=== PATIENT | male | born 1995 | race Caucasian/White ===

== ENCOUNTER 2017-05-21 09:38 | Inpatient (IN) | payer BC ==
[2017-05-21] MEDS ORDERED: Morphine 2 MG/ML SYRINGE ONE (10:00)
[2017-05-21] MEDS ORDERED: Ondansetron HCl/PF 4 MG/2 ML Vial ONE (10:01)
[2017-05-21 10:07] LABS: Hematocrit 41.5 % (42.0-52.0); Mean Platelet Volume 9.3 fL (7.4-10.4); Red Blood Cell (RBC) Count 5.33 mill/uL (4.00-5.20); White Blood Cell (WBC) Count 23.3 thou/uL (4.8-10.8)
[2017-05-21 10:31] LABS: ALT (SGPT) 13 U/L (8-55); AST (SGOT) 21 U/L (10-45); Alkaline Phosphatase 90 U/L (Less than 750); Anion Gap 13 mmol/L (10-20); BUN (Urea Nitrogen) 16 mg/dL (8.4-21.0); Bilirubin, Total 0.8 mg/dL (0.2-1.2); Calc. Creatinine Clearance 0 mL/min (70-130); Calcium 9.3 mg/dL (7.8-10.44); Carbon Dioxide 27 mmol/L (22-29); Chloride 103 mmol/L (98-107); Estimated GFR-MDRD Greater than 90; Protein, Total 7.2 g/dL (6.0-8.3)
[2017-05-21] MEDS ORDERED: Famotidine/PF 20 mg/2ml Vial ONE (10:35)
[2017-05-21] MEDS ORDERED: methylPREDNISolone Sod Succ/PF 125 MG/2 ML VIAL ONE (10:35)
[2017-05-21] MEDS ORDERED: diphenhydrAMINE 50 MG/ML VIAL ONE (10:35)
[2017-05-21] MEDS ORDERED: Water For Inject, Bacteriostat 30 ML ONE (10:35)
[2017-05-21 10:37] LABS: Band 6 % (5-11); Neutrophil 88 % (31-61); Reactive Lymphocytes 1 % (0-10)
--- NOTE | 2017-05-21 12:20 | CT ---
CT ABDOMEN AND PELVIS WITH IV CONTRAST: 05/21/2017 HISTORY: Patient with worsening right lower quadrant pain that began yesterday. Patient with Crohn disease a nd recent abscess drainage. COMPARISON: 04/16/2017 FINDINGS: The previous drainage catheter in the anterior right pelvis has been removed. There is inflammatory stranding in this region, with an associated area of increased density, which may be related to phl egmon. There is no fluid collection seen to suggest an abscess. There is free fluid seen adjacent to the right hepatic lobe and in the right pericolic gutter. There is persistent thickening involvi ng the terminal ileum. The degree of thickening headache improved from the prior study but is proba gonzalo related to the patient's history of Crohn disease. The appendix is normal in caliber. There is mild dependent bibasilar atelectasis with a very tiny amount of pleural fluid at each lung base. The liver, spleen, pancreas, bilateral adrenal glands, kidneys, and abdominal aorta have a normal CT appearance. There are dilated loops of proximal jejunum, measuring up to 3.1 cm. No obvious transition point is seen. A tiny amount of free fluid is seen in the left pericolic gutter. The urinary bladder has a normal CT appearance. IMPRESSION: 1. Interval removal of the right lower quadrant drainage catheter. There is no fluid collection se en on this exam to suggest an abscess. 2. Inflammatory stranding and what is thought to be phlegmon in the region of the previously seen d rainage catheter. 3. Thickening involving the distal ileum, as well as the terminal ileum, likely related to the ty ent's recently diagnosed Crohn's disease. 4. Small amount of free fluid in the abdomen and pelvis. 5. Mild nonspecific dilatation of the proximal small bowel. No obvious transition point is seen to suggest a mechanical small bowel obstruction. Findings could be related to ileus. There is narrow ing of the distal and terminal ileum due to the circumferential wall thickening, but there are inter vening normal caliber loops of small bowel between this area of thickening and the mildly dilated lo ops of jejunum. POS: CARI
[2017-05-21] MEDS ORDERED: Piperacillin/Tazobactam 3.375 GM VIAL ONE (12:32)
[2017-05-21] MEDS ORDERED: Ondansetron HCl/PF 4 MG/2 ML Vial IVP PRN ×2 (13:26→21:01)
[2017-05-21] MEDS ORDERED: Ondansetron ODT 4 MG TAB PO PRN (13:27)
[2017-05-21] MEDS ORDERED: Iopamidol 370 76% 100 ML VIAL ONE (13:29)
[2017-05-21] MEDS ORDERED: Dextrose 5 %-0.45 % NaCl 1,000 ML IV SCH (13:30)
[2017-05-21 13:31] VITALS: BMI 21.9
[2017-05-21] MEDS: Sodium Chloride 0.9% 1,000 ML IV SCH (14:53)
[2017-05-21] MEDS ORDERED: FLU VACC QS2017-18 36 mo. & older 0.5 ML SYRINGE IM ONE (15:15)
--- NOTE | 2017-05-21 17:03 | HP-2 ---
DATE OF ADMISSION: 05/21/2017. The patient seen at 12:48 p.m. CODE STATUS: FULL. PRIMARY CARE PHYSICIAN: Jackei dorsey. ATTENDING PHYSICIAN: Nishant Leal MD RESIDENT: Elena Don, PGY-3. HISTORIAN: Patient. CHIEF COMPLAINT: Right lower quadrant pain sent over from clinic. HISTORY OF PRESENT ILLNESS: Mr. Shepard is a pleasant 21-year-old white male with recently diagnosed Crohn's disease and intra-abdominal abscess in 03/2017, who presents with a 1-day history of right lower quadrant pain. He states that he awoke last night around 3:00 a.m. with sharp, severe abdominal pain. He states that he did not take any medication for the pain; however, he did make an appointment to follow up with his surgeon, Dr. Rojas, who had seen him for his intraabdominal abscess in March. The patient had CT guided drainage of the abdominal abscess in the right lower quadrant and had a draining tube placed which was removed in April. The patient states that he had a followup CT scan which showed that the infection had healed. He states that he had been doing well until yesterday when he developed pain. The patient also had a colonoscopy in 03/2017, when he was diagnosed with Crohn's disease in the hospital. He has been following with Dr. Jansen who has him on Remicade infusions every 2 months. In the emergency department, the patient received Zosyn 3.375 mg, Pepcid, Benadryl for premedication for contrast CT, Solu-Medrol, morphine, 1 liter of normal saline and Zofran. PAST MEDICAL HISTORY: 1. Crohn's disease diagnosed in 03/2017. 2. Anemia of chronic disease. 3. According to the patient's diagnosis of psoriasis 15 years ago; however, not on any therapy. PAST SURGICAL HISTORY: 1. Colonoscopy in 03/2017. 2. CT guided abdominal abscess drainage and draining tube placement. ALLERGIES: IODINE with contrast. MEDICATIONS: Remicade every 2 months. FAMILY HISTORY: Paternal grandmother with colon cancer. SOCIAL HISTORY: The patient denies tobacco, alcohol, or drugs. He is unmarried and has no children. He is a current mechanical engineering, sophomore at [employer]. He states that he lives with a friend who was recently ill with URI type symptoms. REVIEW OF SYSTEMS: A 10 point review of systems was conducted. Pertinent positives are mentioned in the HPI. All others are negative. PHYSICAL EXAMINATION: VITAL SIGNS: Blood pressure 129/68, pulse 79, respirations 16, T-max 98.4, pulse ox 98% on room air, current weight is 61.23 kilograms. GENERAL: The patient is alert and oriented x3. He is not in any acute distress. He is well developed, appropriately interactive during the interview and exam. EYES: Pupils equally round and reactive to light and accommodation. Extraocular muscles are intact. Conjunctivae within normal limits. ENT: Nasal mucosa and oropharynx slightly dry. NECK: Supple. No lymphadenopathy, no thyromegaly. CARDIOVASCULAR: Regular rate and rhythm, no murmurs, gallops, clicks or rubs. Radial pulses +2. RESPIRATIONS: Normal effort, no retractions. LUNGS: Clear to auscultation bilaterally. No wheezes, rales or rhonchi. SKIN: Acne lesions on face, otherwise warm and dry, free of cyanosis or lesions. ABDOMEN: Soft, bowel sounds present in all 4 quadrants. No masses or distension. Tender to palpation diffusely, but especially in the left lower quadrant and right lower quadrant. EXTREMITIES: No clubbing, cyanosis or edema. MUSCULOSKELETAL: Structure and tone within normal limits. Full range of motion. NEUROLOGIC: No focal deficits. PSYCHIATRIC: Appropriate. LABORATORY DATA: White count 23.3, hemoglobin 13, hematocrit 41.5, platelets 257, bands 60% and neutrophils 88%. Sodium 139, potassium 3.9, chloride 103, bicarbonate 27, BUN 16, creatinine 0.79, glucose 91, calcium 9.3, AST 21, ALT 13 , alkaline phosphatase 90, total bilirubin 0.2, total protein 7.2, and albumin 4.2. CT of the abdomen and pelvis shows phlegmon, thickening of the distal ileum, free fluid in the pericolic gutters. ASSESSMENT AND PLAN: This is a 21-year-old male with: 1. Intraabdominal infection status post drainage of abdominal abscess. We will admit the patient to the medical floor. Consultation has been placed in the emergency department to Dr. Rjoas and Dr. Jansen. We will make the patient n.p.o. and allow for bowel rest. The patient will receive morphine as needed for pain. He will be placed on Zosyn for his intraabdominal infection. He received steroids in the emergency department. We would appreciate recommendations if he needs to be continued on steroids. He received a high dose we have not continued any for today. We will recheck his laboratory work in the morning. He will receive maintenance fluids of normal saline at 110 per hour. 2. Crohn's disease due again for Remicade in 07/07. 3. Deep venous thrombosis prophylaxis. Sequential compression devices will be applied. DISPOSITION AND LENGTH OF STAY: 2 days. Symptomatic medications will be provided. History and physical exam as well as management was discussed with Dr. Leal. MICH
[2017-05-21] MEDS ORDERED: Piperacillin/Tazobactam 3.375 GM in Sodium Chloride 0.9% 100 ML IVPB SCH (18:00)
--- NOTE | 2017-05-21 19:55 | HP ---
DATE OF ADMISSION: 05/21/2017 CHIEF COMPLAINT: Abdominal pain. HISTORY OF PRESENT ILLNESS: This is a 21-year-old male with a recent diagnosis in March of Crohn's disease. At that time, he had a drain placed in his abdomen, because of an intra-abdominal abscess , which subsequently improved, and he was started on Remicade and steroids at that time. He was doi ng well after discharge from the hospital, but then last night developed abdominal pain that was in the lower quadrants, it was achy and crampy with associated chills, but no fevers. He denies diarrh ea, hematuria, hematochezia, melena, nausea, or vomiting. REVIEW OF SYSTEMS: A 12-point review of systems is negative except as described in the HPI. For sp ecific pertinent negatives, please see the resident's note. PAST MEDICAL HISTORY: Crohn's disease. PAST SURGICAL HISTORY: Drain placement. ALLERGIES: IODINATED CONTRAST. MEDICATION: Remicade. SOCIAL HISTORY: Denies tobacco, ethanol, or drug use. FAMILY HISTORY: Negative for any autoimmune disease. PHYSICAL EXAMINATION: VITAL SIGNS: Most recent include temperature 98.2, pulse 75, respirations 16, O2 sat 98%, BP 110/56 . CONSTITUTIONAL: He is tired-appearing and resting in bed. EYES: Without icterus or injection. ENT: Moist mucous membranes. No oral lesions. Pinna normal. Nares patent. NECK: Trachea midline and mobile. CARDIOVASCULAR: Regular rate and rhythm without murmur, gallops, or rubs. RESPIRATORY: Lungs clear to auscultation bilaterally without wheezes, rales, or rhonchi. ABDOMEN: Bowel sounds positive, but seemed to be slightly hypoactive. He is tender to palpation of bilateral lower quadrants. No CVA tenderness. No guarding or rigidity. : Deferred. MUSCULOSKELETAL: Without deformity or contracture. SKIN: Without obvious lesion or wound. NEUROLOGIC: Motor 5/5 in all 4 extremities. Sensation intact to light touch throughout. PSYCHIATRIC: Mood and affect are appropriate for current medical condition. Alert and oriented x3. LABORATORY DATA: BMP and LFTs are normal by current laboratory standards. CBC demonstrated leukocy tosis 23.3 with 88% neutrophils, hemoglobin of 13 with MCV of 77.9 and platelets 257. IMAGING: Includes the abdomen and pelvis CT with IV contrast that demonstrated, per report, interva l removal of the right lower quadrant drainage catheter. No fluid collection seen on the exam to as sess the abscess. 1. Inflammatory stranding of what is thought to be a phlegmon in the region of the previously seen drainage catheter. 2. Thickening involving distal ileum as well as the terminal ileum. 3. Small amount of free fluid in the abdomen and pelvis. 4. Nonspecific dilatation of the proximal small bowel. No obvious transition point is seen and aga in I have reviewed this film personally. ASSESSMENT AND PLAN: A 21-year-old male with, 1. Crohn's flare with no discrete intra-abdominal abscess. Dr. Rojas and Dr. Jansen both have be en consulted, recommended IV antibiotics with Zosyn. Did not, to my knowledge, recommend blood cult ures at this time. He received Solu-Medrol in the ED and we will await the recommendations concerni ng continuation in the morning and will ensure that he has had indeed a PPD or QuantiFERON gold to r ule out any latent tuberculosis. 2. Leukocytosis secondary to above. Trend and monitor. 3. Anemia, microcytic. If iron studies have not recently been sent, we will send, but suspect anem ia of chronic disease, indirectly related to Crohn's. 4. Deep vein thrombosis prophylaxis with SCDs. Recommend he ambulate t.i.d. 5. Gastrointestinal prophylaxis. He is n.p.o. for now. If he is n.p.o. for longer than 24 hours, we will add a PPI or H2 yani.
[2017-05-22] MEDS: Piperacillin/Tazobactam 3.375 GM in Sodium Chloride 0.9% 100 ML IVPB SCH ×3 (00:06→13:10)
[2017-05-22] MEDS: Sodium Chloride 0.9% 1,000 ML IV SCH ×3 (00:11→17:57)
[2017-05-22 04:35] LABS: #Lymphocytes 1.1 thou/uL (1.20-3.40); #Monocytes 0.7 thou/uL (0.11-0.59); #Neutrophils 14.6 thou/uL (1.40-6.50); %Basophils 0.1 % (0.0-1.0); %Lymphocytes 6.5 % (28.0-48.0); %Monocytes 4.4 % (0.0-4.0); Hematocrit 35.2 % (42.0-52.0); Red Blood Cell (RBC) Count 4.51 mill/uL (4.00-5.20); White Blood Cell (WBC) Count 16.4 thou/uL (4.8-10.8)
[2017-05-22 04:56] LABS: Anion Gap 11 mmol/L (10-20); BUN (Urea Nitrogen) 15 mg/dL (8.4-21.0); Calc. Creatinine Clearance 122 mL/min (70-130); Calcium 8.8 mg/dL (7.8-10.44); Carbon Dioxide 25 mmol/L (22-29); Chloride 106 mmol/L (98-107); Estimated GFR-MDRD Greater than 90
--- NOTE | 2017-05-22 07:19 | PRG ---
DATE OF SERVICE: 05/21/2017 HISTORY OF PRESENT ILLNESS: Mr. Shepard is well known to me from previous admission for a right lower quadrant abscess treated with percutaneous drainage. 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 Jansen. He has been treated outpatient with Remicade and had steroids on previous admission, now presents with more severe right lower quadrant pain. PHYSICAL EXAMINATION: VITAL SIGNS: He is afebrile, blood pressure is 97/55, pulse 81, respirations 18. LABORATORY: White blood cell count is 23, hemoglobin 13, platelets are 257. CT scan shows right lo wer quadrant phlegmon, some free fluid, evidence of severe inflammatory change to the terminal ileum . ASSESSMENT: Crohn's exacerbation with history of right lower quadrant abscess. PLAN: Admit, IV Zosyn, n.p.o. for now. We will get Dr. Jansen to see again. I am unsure what the next step would be, would prefer not to operate in the setting of this Crohn's disease; however, may require ileostomy. We will follow for clinical improvement.
[2017-05-22 08:05] LABS: Iron 30 ug/dL (65-175)
--- NOTE | 2017-05-22 08:10 | PDOC.FM ---
- Subjective Subjective: No complaints this morning. States abdominal pain is improved. - Objective MAR Reviewed: Yes Vital Signs & Weight: Vital Signs (12 hours) Temp Pulse Resp BP Pulse Ox 05/22/17 05:06 97.5 F L 65 18 93/51 L 98 05/22/17 00:20 97.6 F 79 18 108/61 98 Result Diagrams: 05/22/17 04:24 05/22/17 04:24 <Joi Galvan - Last Filed: 05/22/17 12:36> - Objective Vital Signs & Weight: Vital Signs (12 hours) Temp Pulse Resp BP Pulse Ox 05/22/17 19:00 97.8 F 72 18 106/63 98 05/22/17 17:00 97.4 F L 70 16 107/67 99 05/22/17 13:07 98 F 72 18 101/63 100 I&O: 05/21/17 05/22/17 05/23/17 06:59 06:59 06:59 Intake Total 1330 Balance 1330 Result Diagrams: 05/22/17 04:24 05/22/17 04:24 <Pato Rocha - Last Filed: 05/22/17 20:08> Phys Exam - Physical Examination Constitutional: NAD HEENT: PERRLA, moist MMs Respiratory: no wheezing, no rales, clear to auscultation bilateral Cardiovascular: RRR, no significant murmur Gastrointestinal: soft, no distention, positive bowel sounds mildly tender to palp in RLW Musculoskeletal: no edema, pulses present Neurological: non-focal Psychiatric: normal affect, A&O x 3 Skin: no rash <Joi Galvan - Last Filed: 05/22/17 12:36> Dx/Plan (1) Intra-abdominal infection Code(s): B99.9 - UNSPECIFIED INFECTIOUS DISEASE Status: Acute (2) Crohn's disease Code(s): K50.90 - CROHN'S DISEASE, UNSPECIFIED, WITHOUT COMPLICATIONS Status: Acute Qualifiers: Gastrointestinal tract location: small intestine Digestive disease complication type: with abscess Qualified Code(s): K50.014 - Crohn's disease of small intestine with abscess (3) Chronic anemia Code(s): D64.9 - ANEMIA, UNSPECIFIED Status: Chronic - Plan Plan: 21 yo m with pmhx of Crohns and recent admission for RLQ abscess, s/p percutaneous drainage in 03/2017, presents yesterday for recurrent RLQ pain, without clear abscess on CT, however signs of infection on CT, admitted for this RLQ infection to receive iv antibiotics and possible surgical management. 1.)RLQ infection: -Bob and Justyna consulted, pending recs -Will keep the pt NPO and await recommendations; will allow ice chips -will continue IV fluids and monitor pt's vitals (low bp this morning) -will continue zosyn at this time 2.)Crohns dz, acute flare-will restart home meds, provide morphine for pain, NPO for bowel rest and IV fluids <Joi Galvan - Last Filed: 05/22/17 12:36> Attending Addendum - Attending Addendum I personally evaluated the patient and discussed the management with Dr. Galvan I agree with the History, Examination, Assessment and Plan documented above with any addition or exceptions noted below. 21 year old with previous bowel perforation from Crohn's disease status post surgical drainage and antibiotics. He returns now with an apparent recurrence in the same location 5 weeks after stopping treatment. Surgery is following with us and wants to attempt treatment with antibiotics first. CT shows Phlegmon but no abscess. He is on Zosyn now and improving. He is immunosuppressed. The primary questions are whether we can resolve this with antibiotics and the duration of treatment. We will discuss these with Surgery. <Pato Rocha - Last Filed: 05/22/17 20:08>
--- NOTE | 2017-05-22 08:38 | PRG ---
DATE OF SERVICE: 05/22/2017 SUBJECTIVE: Mr. Shepard feels considerably better today. He denies nausea. His bloating is improved . PHYSICAL EXAMINATION: VITAL SIGNS: He is afebrile and his vital signs are stable. ABDOMEN: Soft, much less distended. He is tender in the right lower quadrant, but he is not guardi ng anymore. No peritoneal signs. LABORATORY DATA: White blood cell count is down to 16 from 23, creatinine 0.85. ASSESSMENT: Right lower quadrant phlegmon related to Crohn's on Zosyn. PLAN: We will allow ice chips and sips today. My hope is that he continues to improve clinically, still would prefer not to operate in the setting of active Crohn's even ileostomy can be fraught wit h enterocutaneous fistula, wound infection, hernia. We will follow with you.
[2017-05-22] MEDS: Piperacillin/Tazobactam 3.375 GM, Admixture Fee 1 EACH in Sodium Chloride 0.9% 100 ML IVPB SCH (18:02)
[2017-05-22] MEDS: Morphine 2 MG/ML SYRINGE SLOW IVP PRN (19:05)
[2017-05-22] MEDS ORDERED: Morphine 2 MG/ML SYRINGE SLOW IVP SCH (20:00)
--- NOTE | 2017-05-22 22:20 | CON ---
DATE OF CONSULTATION: 05/22/2017 HISTORY OF PRESENT ILLNESS: Mr. Shepard is a 21-year-old who was diagnosed with Crohn's disease when he initially presented with a perforation a few months ago. He responded well to IV antibiotics and then oral antibiotics and with improvement with that and steroids. He was started on Remicade in l ieu of surgery. His drains were removed and he has done very well from this initial hospitalization in late March until he was readmitted to the hospital yesterday. The patient notes he has had thi s three infusions of Remicade. He had been doing very well with no pain. His drain had been out fo r some time. His outpatient CAT scan between the last scan here on 03/26 and the scan from 04/02, a nd he had another one on 04/16, which showed the fluid was completely evacuated with some mild wall thickening adjacent to the terminal ileum, but there was marked improvement in the scan from his ini tia presentation. At that time, Dr. Rojas removed his drain. He is following clinically. He wa s doing fine until he states from Friday evening, the . He woke at about 3:00 in the morning o n Friday with lower abdominal pain and feeling of constipation with his pain was ongoing, some lo w-grade temperature. He also saw Dr. Rojas at 9:30 in the morning and had a CAT scan showing infla mmatory stranding in the right lower quadrant, area of increased density with likely phlegmon or abhishek e fluid just right hepatic lobe, right pericolic gutter, persistent terminal ileal thickening, some proximal dilatation of small bowel to that. He was admitted to the hospital. He was started on ant ibiotics including Zosyn and IV fluids. He was feeling much better. He has been afebrile since he has been here. Laboratory studies were notable for white count 23,000 yesterday, hemoglobin 12, tono telet count of 257. Today, his white count is down to 16, hemoglobin is 11.2, and platelet count 25 2. PAST MEDICAL HISTORY: Crohn's disease diagnosed in March of this year, prior to that he had some c hronic bowel problems which were felt to be IBS. PAST SURGICAL HISTORY: Negative except for the drains noted above. ALLERGIES: None known. MEDICATIONS AT HOME: On Remicade, he is on induction therapy. His next dose is in July. FAMILY HISTORY: Negative for inflammatory bowel disease. PHYSICAL EXAMINATION: VITAL SIGNS: Temperature was 98, pulse 72, blood pressure 101/63. LUNGS: Clear. HEART: Regular rate and rhythm without clicks or murmurs. ABDOMEN: Soft, no tenderness. There is no rebound. There is no guarding. ASSESSMENT: Crohn's disease. He presented with perforation and an abscess. We attempted to manage this medically. He has failed this. He is going to need a resection. The timing will be determin ed by General Surgery. If he is discharged home without resection, he will need to stay on antibiot ics until he has his resection, would not stop his Remicade during that time. This is actually shane ting his Crohn's disease and he does seem to be responding to it. It is just that he has disease th at has advanced to the point where he is going to need removal of this section of the bowel as it se ems he probably has a persistent fistula or a microperforation.
[2017-05-23] MEDS: Piperacillin/Tazobactam 3.375 GM, Admixture Fee 1 EACH in Sodium Chloride 0.9% 100 ML IVPB SCH ×5 (00:07→23:33)
[2017-05-23] MEDS: Morphine 2 MG/ML SYRINGE IVP PRN ×3 (00:37→16:14)
[2017-05-23] MEDS: Sodium Chloride 0.9% 1,000 ML IV SCH ×3 (04:38→21:33)
[2017-05-23 08:51] LABS: #Basophils 0.1 thou/uL (0.0-0.2); #Lymphocytes 1.2 thou/uL (1.20-3.40); #Monocytes 1.5 thou/uL (0.11-0.59); #Neutrophils 10.3 thou/uL (1.40-6.50); %Basophils 0.5 % (0.0-1.0); %Eosinophils 0.3 % (0.0-10.0); %Lymphocytes 9.4 % (28.0-48.0); %Monocytes 11.4 % (0.0-4.0); Hematocrit 35.5 % (42.0-52.0); Mean Platelet Volume 8.9 fL (7.4-10.4); Red Blood Cell (RBC) Count 4.57 mill/uL (4.00-5.20); White Blood Cell (WBC) Count 13.2 thou/uL (4.8-10.8)
[2017-05-23 09:13] LABS: Anion Gap 10 mmol/L (10-20); BUN (Urea Nitrogen) 14 mg/dL (8.4-21.0); Calc. Creatinine Clearance 115 mL/min (70-130); Calcium 8.6 mg/dL (7.8-10.44); Carbon Dioxide 28 mmol/L (22-29); Chloride 103 mmol/L (98-107); Estimated GFR-MDRD Greater than 90; Magnesium 1.7 mg/dL (1.7-2.2); Phosphorus 3.8 mg/dL (2.3-4.7)
--- NOTE | 2017-05-23 11:17 | PDOC.FM ---
- Subjective Subjective: Endorsed one episode of dysuria overnight. Complained of worsening abdominal pain this morning. - Objective Vital Signs & Weight: Vital Signs (12 hours) Temp Pulse Resp BP Pulse Ox 05/23/17 07:46 97.8 F 72 16 120/71 98 I&O: 05/22/17 05/23/17 05/24/17 06:59 06:59 06:59 Intake Total 2650 Output Total 2 Balance 2648 Result Diagrams: 05/23/17 08:35 05/23/17 08:35 <Joi Galvan - Last Filed: 05/23/17 11:17> - Objective Vital Signs & Weight: Vital Signs (12 hours) Temp Pulse Resp BP Pulse Ox 05/24/17 07:47 97.5 F L 53 L 16 05/24/17 07:15 97.5 F L 53 L 16 93/57 L 97 I&O: 05/23/17 05/24/17 05/25/17 06:59 06:59 06:59 Intake Total 2650 1920 Output Total 2 1000 Balance 2648 920 Result Diagrams: 05/24/17 06:31 05/24/17 06:31 <Pato Rocha - Last Filed: 05/24/17 08:02> Phys Exam - Physical Examination Constitutional: NAD HEENT: PERRLA, moist MMs Respiratory: no wheezing, clear to auscultation bilateral Cardiovascular: RRR, no significant murmur Gastrointestinal: soft tender in rlq Musculoskeletal: no edema, pulses present Neurological: non-focal, normal sensation Psychiatric: normal affect, A&O x 3 Skin: no rash <Joi Galvan - Last Filed: 05/23/17 11:17> Dx/Plan (1) Intra-abdominal infection Code(s): B99.9 - UNSPECIFIED INFECTIOUS DISEASE Status: Acute (2) Crohn's disease Code(s): K50.90 - CROHN'S DISEASE, UNSPECIFIED, WITHOUT COMPLICATIONS Status: Acute Qualifiers: Gastrointestinal tract location: small intestine Digestive disease complication type: with abscess Qualified Code(s): K50.014 - Crohn's disease of small intestine with abscess (3) Chronic anemia Code(s): D64.9 - ANEMIA, UNSPECIFIED Status: Chronic - Plan Plan: 21 yo m with pmhx of Crohns and recent admission for RLQ abscess, s/p percutaneous drainage in 03/2017, presents for recurrent RLQ pain, without clear abscess on CT but with evidence of some free fluid and signs of infection on CT , admitted for this RLQ infection to receive iv antibiotics and possible surgical management. 1.)RLQ infection: -Bob and Justyna consulted, pending recs -Will keep the pt NPO and await recommendations; will allow ice chips -will continue IV fluids and monitor pt's vitals (low bp this morning) -will continue zosyn at this time, will consider switching to ertapenem if pt needs to be discharged on IV antibiotics because this is dosed once daily. 2.)Crohns dz, acute flare-will restart home meds, provide morphine for pain, NPO for bowel rest and IV fluids 3.)Dysuria-ordered a UA, gonorrhea and chlamydia. <Joi Galvan - Last Filed: 05/23/17 11:17> Attending Addendum - Attending Addendum I personally evaluated the patient and discussed the management with Dr. Galvan I agree with the History, Examination, Assessment and Plan documented above with any addition or exceptions noted below. He is better. GI feels he needs a resection. Surgery would like to delay this given the activity of his disease. We will discuss timing with both consultants. <Pato Rocha - Last Filed: 05/24/17 08:02>
[2017-05-23 11:45] LABS: Bilirubin Negative (Negative); Blood, Urine Negative (Negative); Glucose, Urine (Dipstick) Negative (Negative); Ketone, Urine 15 mg/dL (Negative); Nitrite Negative (Negative); Protein, Urine (Dipstick) Negative (Neg-Trace); Urobilinogen 0.2 mg/dL (0.2-1.0)
[2017-05-23] MEDS: Morphine 2 MG/ML SYRINGE SLOW IVP PRN (12:00)
--- NOTE | 2017-05-23 14:51 | PRG ---
DATE OF SERVICE: 05/23/2017 SUBJECTIVE: Mr. Shepard is slightly improved today, although still having some right lower quadrant p ain. OBJECTIVE: VITAL SIGNS: He is afebrile. Vital signs are stable. ABDOMEN: Soft, dam tender assistant right lower quadrant. LABORATORY DATA: White cell count is down to 13. ASSESSMENT: Discussed with Dr. Jansen. PLAN: Plan is for liquid diet over the weekend. Continue Zosyn and try some steroids, may be force d to do operative procedure which would include an ileostomy next week.
[2017-05-23] MEDS: traMADol HCl 50 MG TAB PO PRN ×2 (17:02→21:38)
--- NOTE | 2017-05-23 19:16 | PRG ---
DATE OF SERVICE: 05/23/2017 Young has a little bit of discomfort today in the right lower abdomen. He has not had any bowel mov ements. He is voiding well. He has had no fever or chills. He has been n.p.o. MEDICATION: Next dose of Remicade will be in early July. He is on Zosyn and IV fluids. PHYSICAL EXAMINATION: VITAL SIGNS: Temperature is 98, pulse 72, blood pressure 120/71. LUNGS: Clear. HEART: Regular rate and rhythm without clicks or murmurs. ABDOMEN: Soft with mild tenderness in the right lower quadrant. Bowel sounds are positive. There is no rebound. There is no guarding. ASSESSMENT: 1. Overall, I think her CAT scan still looks better on 05/21/2017 that it did in April. There are still a little bit of thickening, a loop of bowel flashed down to the pelvis, but actually I thi nk it is less edematous and less inflamed than it was in April. 2. TB testing has previously been negative, does not need to repeat at this admission. RECOMMENDATIONS: 1. Continue Zosyn. 2. Add IV steroids. 3. If the patient has any deterioration, he may need to have a resection. If he has improvement, w e can possibly transition to oral antibiotics for first 3-4 weeks as an outpatient and re-evaluate w ith imaging in few weeks.
[2017-05-24] MEDS: Piperacillin/Tazobactam 3.375 GM, Admixture Fee 1 EACH in Sodium Chloride 0.9% 100 ML IVPB SCH ×4 (05:25→23:47)
[2017-05-24] MEDS: Sodium Chloride 0.9% 1,000 ML IV SCH ×2 (05:27→15:34)
--- NOTE | 2017-05-24 06:20 | PDOC.FM ---
- Subjective Subjective: Mr. Shepard is feeling much better this morning. He states that since starting the steroids and the tramadol, his pain has become much more controlled. He feels like his abdomen is less tense. He denies fever, chills, night sweats, chest pain, dyspnea, n/v/d. - Objective MAR Reviewed: Yes Vital Signs & Weight: Vital Signs (12 hours) Temp Pulse Resp BP Pulse Ox 05/23/17 20:00 98.1 F 82 16 106/64 97 I&O: 05/22/17 05/23/17 05/24/17 06:59 06:59 06:59 Intake Total 2650 1920 Output Total 2 1000 Balance 2648 920 Result Diagrams: 05/24/17 06:31 05/24/17 06:31 <Lalo Campbell - Last Filed: 05/24/17 07:53> - Objective Vital Signs & Weight: Vital Signs (12 hours) Temp Pulse Resp BP Pulse Ox 05/24/17 07:47 97.5 F L 53 L 16 05/24/17 07:15 97.5 F L 53 L 16 93/57 L 97 I&O: 05/23/17 05/24/17 05/25/17 06:59 06:59 06:59 Intake Total 2650 1920 Output Total 2 1000 Balance 2648 920 Result Diagrams: 05/24/17 06:31 05/24/17 06:31 <Pato Rocha - Last Filed: 05/24/17 10:39> Phys Exam - Physical Examination Constitutional: NAD HEENT: PERRLA, moist MMs, sclera anicteric Neck: no JVD, supple, full ROM Respiratory: no wheezing, no rales, no rhonchi, clear to auscultation bilateral Cardiovascular: RRR, no significant murmur, no rub Gastrointestinal: soft, no distention, positive bowel sounds RLQ TTP Musculoskeletal: no edema, pulses present Neurological: non-focal, normal sensation, moves all 4 limbs Psychiatric: normal affect, A&O x 3 <Lalo Campbell - Last Filed: 05/24/17 07:53> Dx/Plan (1) Intra-abdominal infection Code(s): B99.9 - UNSPECIFIED INFECTIOUS DISEASE Status: Acute (2) Crohn's disease Code(s): K50.90 - CROHN'S DISEASE, UNSPECIFIED, WITHOUT COMPLICATIONS Status: Acute Qualifiers: Gastrointestinal tract location: small intestine Digestive disease complication type: with abscess Qualified Code(s): K50.014 - Crohn's disease of small intestine with abscess (3) Chronic anemia Code(s): D64.9 - ANEMIA, UNSPECIFIED Status: Chronic - Plan Plan: 21 yo m with pmhx of Crohns and recent admission for RLQ abscess, s/p percutaneous drainage in 03/2017, presents for recurrent RLQ pain, without clear abscess on CT but with evidence of some free fluid and signs of infection on CT , admitted for this RLQ infection to receive iv antibiotics and possible surgical management. 1.)RLQ infection: -Bob and Justyna consulted, pending recs -Will keep the pt NPO and await recommendations; will allow ice chips -will continue IV fluids and monitor pt's vitals (low bp this morning) -will continue zosyn at this time -GI and Gen Surg have recommended continuing zosyn and starting steroids and monitoring progress -pending how patient responds, will either need OP abx or poss surgery 2.)Crohns dz, acute flare-will restart home meds, provide morphine for pain, NPO for bowel rest and IV fluids 3.)Dysuria-UA was negative, gonorrhea and chlamydia pending <Lalo Campbell - Last Filed: 05/24/17 07:53> Attending Addendum - Attending Addendum I personally evaluated the patient and discussed the management with Dr. Campbell I agree with the History, Examination, Assessment and Plan documented above with any addition or exceptions noted below. He is much better after getting steroids. We will continue current care over the weekend and reassess for surgery on Friday. <Pato Rocha - Last Filed: 05/24/17 10:39>
[2017-05-24 06:40] LABS: #Lymphocytes 0.7 thou/uL (1.20-3.40); #Monocytes 0.3 thou/uL (0.11-0.59); #Neutrophils 10.1 thou/uL (1.40-6.50); %Basophils 0.2 % (0.0-1.0); %Eosinophils 0.1 % (0.0-10.0); %Lymphocytes 6.6 % (28.0-48.0); %Monocytes 2.6 % (0.0-4.0); Hematocrit 39.8 % (42.0-52.0); Mean Platelet Volume 8.7 fL (7.4-10.4); Red Blood Cell (RBC) Count 5.11 mill/uL (4.00-5.20); White Blood Cell (WBC) Count 11.2 thou/uL (4.8-10.8)
[2017-05-24 07:07] LABS: Anion Gap 9 mmol/L (10-20); BUN (Urea Nitrogen) 10 mg/dL (8.4-21.0); Calc. Creatinine Clearance 114 mL/min (70-130); Carbon Dioxide 30 mmol/L (22-29); Chloride 102 mmol/L (98-107); Estimated GFR-MDRD Greater than 90
[2017-05-24] MEDS ORDERED: predniSONE 20 MG TAB PO SCH (08:00)
[2017-05-24] MEDS: traMADol HCl 50 MG TAB PO PRN (17:49)
[2017-05-25] MEDS: Sodium Chloride 0.9% 1,000 ML IV SCH ×4 (02:01→21:12)
[2017-05-25] MEDS: Piperacillin/Tazobactam 3.375 GM, Admixture Fee 1 EACH in Sodium Chloride 0.9% 100 ML IVPB SCH ×4 (05:24→23:48)
--- NOTE | 2017-05-25 07:14 | PDOC.FM ---
- Subjective Subjective: Mr. Shepard is doing well. Slept well overnight, no acute events, no complaints. He states that he did not require any pain medication yesterday or last night. He is not currently in any pain. - Objective MAR Reviewed: Yes Vital Signs & Weight: Vital Signs (12 hours) Temp Pulse Resp BP Pulse Ox 05/24/17 22:00 97.9 F 60 12 98 05/24/17 19:45 97.9 F 60 12 85/43 L 98 I&O: 05/24/17 05/25/17 05/26/17 06:59 06:59 06:59 Intake Total 1920 1870 Output Total 1000 Balance 920 1870 Result Diagrams: 05/24/17 06:31 05/24/17 06:31 Radiology Reviewed by me: Yes <Lalo Campbell - Last Filed: 05/25/17 07:15> - Objective Vital Signs & Weight: Vital Signs (12 hours) Temp Pulse Resp BP Pulse Ox 05/25/17 08:07 97.6 F 49 L 16 90/42 L 97 I&O: 05/24/17 05/25/17 05/26/17 06:59 06:59 06:59 Intake Total 1920 1870 Output Total 1000 Balance 920 1870 Result Diagrams: 05/24/17 06:31 05/24/17 06:31 <Pato Rocha - Last Filed: 05/25/17 10:04> Phys Exam - Physical Examination Constitutional: NAD HEENT: moist MMs, sclera anicteric Neck: no JVD, supple, full ROM Respiratory: no wheezing, no rales, no rhonchi, clear to auscultation bilateral Cardiovascular: RRR, no significant murmur, no rub Gastrointestinal: soft, non-tender, no distention, positive bowel sounds Musculoskeletal: no edema, pulses present Neurological: non-focal, normal sensation, moves all 4 limbs Psychiatric: normal affect, A&O x 3 <Lalo Campbell - Last Filed: 05/25/17 07:15> Dx/Plan (1) Intra-abdominal infection Code(s): B99.9 - UNSPECIFIED INFECTIOUS DISEASE Status: Acute (2) Crohn's disease Code(s): K50.90 - CROHN'S DISEASE, UNSPECIFIED, WITHOUT COMPLICATIONS Status: Acute Qualifiers: Gastrointestinal tract location: small intestine Digestive disease complication type: with abscess Qualified Code(s): K50.014 - Crohn's disease of small intestine with abscess (3) Chronic anemia Code(s): D64.9 - ANEMIA, UNSPECIFIED Status: Chronic - Plan Plan: 21 yo m with pmhx of Crohns and recent admission for RLQ abscess, s/p percutaneous drainage in 03/2017, presents for recurrent RLQ pain, without clear abscess on CT but with evidence of some free fluid and signs of infection on CT , admitted for this RLQ infection to receive iv antibiotics and possible surgical management. 1.)RLQ infection: -Anuragt and Justyna consulted, pending recs -clear liquid diet -will continue IV fluids and monitor pt's vitals -will continue zosyn at this time -GI and Gen Surg have recommended continuing zosyn and starting steroids and monitoring progress over weekend -pending how patient responds, will either need OP abx or poss surgery 2.)Crohns dz, acute flare-will restart home meds, provide morphine for pain, IV fluids 3.)Dysuria-UA was negative, gonorrhea and chlamydia pending, likely secondary to crohns flare <Lalo Campbell - Last Filed: 05/25/17 07:15> Attending Addendum - Attending Addendum I personally evaluated the patient and discussed the management with Dr. Campbell I agree with the History, Examination, Assessment and Plan documented above. <Pato Rocha - Last Filed: 05/25/17 10:04>
[2017-05-26] MEDS: Sodium Chloride 0.9% 1,000 ML IV SCH (05:25)
[2017-05-26] MEDS: Piperacillin/Tazobactam 3.375 GM, Admixture Fee 1 EACH in Sodium Chloride 0.9% 100 ML IVPB SCH (05:25)
--- NOTE | 2017-05-26 06:27 | PDOC.FM ---
- Subjective Subjective: Patient slept well overnight, denies any complaints. Reports that he is currently not in any pain. He is having very watery bowel movements, but reports that he has had an all liquid diet. He did not require any pain medication over the weekend. He has not had any nausea or vomiting. - Objective MAR Reviewed: Yes Vital Signs & Weight: Vital Signs (12 hours) Temp Pulse Resp BP Pulse Ox 05/25/17 22:00 97.8 F 66 16 97 05/25/17 20:00 97.8 F 66 16 107/69 97 I&O: 05/24/17 05/25/17 05/26/17 06:59 06:59 06:59 Intake Total 1920 1870 2220 Output Total 1000 Balance 920 1870 2220 Result Diagrams: 05/24/17 06:31 05/24/17 06:31 <Amanda Fields - Last Filed: 05/26/17 06:25> - Objective Vital Signs & Weight: Vital Signs (12 hours) Temp Pulse Resp BP Pulse Ox 05/26/17 08:00 98 F 45 L 18 121/73 95 I&O: 05/25/17 05/26/17 05/27/17 06:59 06:59 06:59 Intake Total 1870 3780 Balance 1870 3780 Result Diagrams: 05/24/17 06:31 05/24/17 06:31 <Denise Rossi - Last Filed: 05/26/17 10:49> Phys Exam - Physical Examination Constitutional: NAD HEENT: moist MMs Respiratory: no wheezing, no rales, no rhonchi, clear to auscultation bilateral Cardiovascular: RRR, no significant murmur, no rub, gallop Gastrointestinal: soft, non-tender, no distention, positive bowel sounds Musculoskeletal: no edema, pulses present Neurological: non-focal, moves all 4 limbs Psychiatric: normal affect, A&O x 3 <Amanda Fields - Last Filed: 05/26/17 06:25> Dx/Plan (1) Intra-abdominal infection Code(s): B99.9 - UNSPECIFIED INFECTIOUS DISEASE Status: Acute Plan: This is a 21 yo M with PMHx of Crohn's dz who was recently admitted for RLQ abscess s/p percutaneous drainage 03/2017 who presented initially for recurrent RLQ pain and elevated WBC count, but without any evidence of abscess on CT scan. CT showed evidence of small amount of free fluid and thickening of distal ileum. - 6 -Bob with general surgery consulted, rodeny Trivedi with GI consulted, appreciate kwadwo -Has been on clear liquid diet, IVF -Solu-medrol -Consider surgery vs outpatient abx (2) Crohn's disease Code(s): K50.90 - CROHN'S DISEASE, UNSPECIFIED, WITHOUT COMPLICATIONS Status: Acute Qualifiers: Gastrointestinal tract location: small intestine Digestive disease complication type: unspecified complication Qualified Code(s): K50.019 - Crohn 's disease of small intestine with unspecified complications Plan: This is a 21 yo M here for Crohn's disease exacerbation with likely microperforation -syn 6 -Bob with general surgery consulted, rodney Trivedi with GI consulted, rodney burkett -Has been on clear liquid diet, IVF -Solu-medrol -Consider surgery vs outpatient abx -Morphine for pain, although patient has not required any over the weekend <Amanda Fields - Last Filed: 05/26/17 06:25> Attending Addendum - Attending Addendum I personally evaluated the patient and discussed the management with Dr. Fields. I agree with the History, Examination, Assessment and Plan documented above with any addition or exceptions noted below. The patient is feeling much better since starting steroids. He has been cleared by Dr. Rojas for discharge. <Denise Rossi - Last Filed: 05/26/17 10:49>
[2017-05-26 08:32] VITALS: BP 121/73; TEMP 98
--- NOTE | 2017-05-26 11:07 | PRG ---
DATE OF SERVICE: 05/26/2017 SUBJECTIVE: Mr. Shepard has no complaints today, his pain is much improved. He was tolerating the fu liquid diet over the weekend. OBJECTIVE: He is afebrile. His vital signs are stable. His abdomen is soft and only mildly tender now in the right lower quadrant without guarding or rebound. LABORATORY DATA: White cell count was 11 on 05/24/2017. ASSESSMENT: Resolving Crohn's exacerbation with history of right lower quadrant abscess. PLAN: He is improved on steroids. We will discharge home on Levaquin and Flagyl as well as oral st eroids. Follow up with me in the outpatient setting in 2 weeks.
--- NOTE | 2017-05-27 06:34 | DIS-2 ---
DATE OF ADMISSION: 05/21/2017 DATE OF DISCHARGE: 05/26/2017 ADMITTING RESIDENT: Elena Don MD DISCHARGE RESIDENT: Amanda Fields MD ADMITTING ATTENDING: Nishant Leal MD DISCHARGE ATTENDING: Denise Rossi MD CONSULTATIONS: Dr. Rojas with General Surgery and Dr. Jansen with GI. PROCEDURES: None. PRIMARY DIAGNOSES: 1. Acute intra-abdominal infection. 2. Acute Crohn's flare. 3. Leukocytosis. SECONDARY DIAGNOSIS: Crohn disease. DISCHARGE MEDICATIONS: 1. Levofloxacin 500 mg one tablet p.o. daily for 7 days. 2. Metronidazole 500 mg one tablet p.o. every 8 hours, dispensed #14. 3. Infliximab 3 mg/kg IVPB as directed. HISTORY OF PRESENT ILLNESS AND HOSPITAL COURSE: This is a 21-year-old male who presented with right lower quadrant abdominal pain after being admitted to the hospital only 2 months ago for a right lo wer quadrant abscess that had to be percutaneously drained. The patient had an elevated white count to 23.3, but the CT of the abdomen and pelvis showed inflammatory stranding in the anterior pelvis where the previous drainage catheter had been removed. No fluid collection suggesting an abscess, h owever, there is free fluid and persistent thickening involving the right terminal ileum. The patie nt was started on Zosyn, but was requiring a significant amount of morphine for pain control. On , he was started on Solu-Medrol and this significantly improved his pain. Patient did not r equire any more morphine after this point. Patient's white count trended down to 11.2 and his pain improved where he could tolerate p.o. without difficulty. The patient was discharged with follow up with GI and General Surgery. DISPOSITION: Stable. DISCHARGE INSTRUCTIONS: 1. Location: Home. 2. Diet: Low fiber. 3. Activity: As tolerated. 4. Follow up with Dr. Rojas in [address] Jansen in 2 weeks.
== END 2017-05-26 12:05 | disposition home or self-care (01) | DRG 386 ==
LOC: ERS 09:38 → T4-B 13:26
PROVIDERS: ADMIT Internal Medicine; ATTEND Internal Medicine
DX: K50.014 Crohn's disease of small intestine with abscess (principal); D63.8 Anemia in other chronic diseases classified elsewhere; Z91.041 Radiographic dye allergy status; Z79.899 Other long term (current) drug therapy
CPT/HCPCS: 36415; 74177; 80048; 80053; 81003; 82728; 83540; 83550; 83735; 84100; 85025; 87491; 87591; 90471; 90682; 96361; 96365; 96375; A4216; G0008; J1200; J2270; J2405; J2543; J2920; J2930; J7050; Q2036; S0028

== ENCOUNTER 2017-06-27 16:16 | Inpatient (IN) | payer BC ==
[2017-06-27 16:45] LABS: Hematocrit 43.9 % (42.0-52.0); Mean Platelet Volume 8.8 fL (7.4-10.4); Red Blood Cell (RBC) Count 5.59 mill/uL (4.00-5.20)
[2017-06-27 17:03] LABS: Anisocytosis SLIGHT = 6-15 cells (100X) (0-5/hpf); Hypochromia SLIGHT = 6-15 cells (100X) (0-5/hpf); Neutrophil 90 % (31-61)
[2017-06-27 17:07] LABS: ALT (SGPT) 13 U/L (8-55); AST (SGOT) 19 U/L (10-45); Alkaline Phosphatase 69 U/L (Less than 750); Anion Gap 14 mmol/L (10-20); BUN (Urea Nitrogen) 14 mg/dL (8.4-21.0); Bilirubin, Total 0.9 mg/dL (0.2-1.2); Calc. Creatinine Clearance 0 mL/min (70-130); Carbon Dioxide 27 mmol/L (22-29); Chloride 101 mmol/L (98-107); Estimated GFR-MDRD Greater than 90; Lipase 8 U/L (8-78); Protein, Total 7.3 g/dL (6.0-8.3)
[2017-06-27 17:31] LABS: Bilirubin Negative (Negative); Blood, Urine Negative (Negative); Glucose, Urine (Dipstick) Negative (Negative); Ketone, Urine 15 mg/dL (Negative); Nitrite Negative (Negative); Protein, Urine (Dipstick) Negative (Neg-Trace); Urobilinogen 0.2 mg/dL (0.2-1.0)
[2017-06-27 17:34] LABS: Bacteria/HPF None Seen HPF (None Seen); Hyaline Casts/LPF 0-3 HYALINE CAST LPF (0-3 Hyaline); Squamous Epithelial None Seen HPF (0-3); WBC/HPF 0-3 HPF (0-3)
[2017-06-27] MEDS ORDERED: Ondansetron ODT 4 MG TAB PO PRN (18:56)
[2017-06-27] MEDS ORDERED: Dextrose 5% in Water 1,000 ML IV PRN (18:56)
[2017-06-27] MEDS ORDERED: Ondansetron HCl/PF 4 MG/2 ML Vial IVP PRN (18:56)
[2017-06-27] MEDS ORDERED: Morphine 4 MG/ML Carpuject IVP PRN (18:56)
[2017-06-27] MEDS ORDERED: Dextrose 50% Abboject 50 ML SYRINGE SLOW IVP PRN (18:56)
[2017-06-27] MEDS ORDERED: Ketorolac Tromethamine 30 MG/ML VIAL IVP PRN (18:58)
[2017-06-27] MEDS ORDERED: Piperacillin/Tazobactam 3.375 GM in Sodium Chloride 0.9% 100 ML IVPB SCH (19:30)
[2017-06-27] MEDS ORDERED: Enoxaparin Sodium 40 MG/0.4 ML SYRINGE SC SCH (21:00)
[2017-06-27 21:15] VITALS: BMI 21.7
[2017-06-27] MEDS: D5 1/2 NS w/20 mEq KCL 1,000 ML IV SCH (22:52)
[2017-06-27] MEDS: Acetaminophen 1,000 MG in Premix Bag 1 BAG IVPB SCH (22:57)
[2017-06-28] MEDS ORDERED: Morphine 4 MG/ML VIAL SLOW IVP PRN ×2 (00:02→00:03)
[2017-06-28] MEDS: predniSONE 50 MG TAB PO SCH ×4 (00:15→08:29)
--- NOTE | 2017-06-28 00:30 | HP ---
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 Jansen, Dr. Fernie Rojas. Patient underwent 03/23/2017, CT guided drainage of an abscess, resolving that. Last CAT scan on 05/21/2017 performed, revealed i nflammatory stranding in the area of the fluid collection, but this has resolved and there was no abs cess. Appendix was normal. Patient has been on the steroid taper 10 mg a day, currently under the d irection of Dr. Jansen. He takes Remicade every three months and is due for his next dose, on 07/06. He is on Flagyl 500 mg 3 times a day. Patient presents to the emergency room with worsening pain. Otherwise, he is afebrile, having normal bowel movements, but the pain is intolerable. Plan is to a dmit him consult Gastroenterology. He states his current symptoms have resolved with hydro steroid a dministration. We will consult Dr. Jansen and Dr. Villela for that. ALLERGIES: IODINE, we will discontinue his CAT scan tonight and wait for an iodine prep and do a rep eat CAT scan tomorrow, his MRI scan scheduled for Friday (today is Friday). TOBACCO: None. ALCOHOL: None. MEDICATIONS: Prednisone 10 mg a day taper 1/2 tablet every 4-5 days, Flagyl 500 mg t.i.d. PAST SURGICAL HISTORY: Noncontributory. PAST MEDICAL HISTORY: Crohn's. REVIEW OF SYSTEMS: Ten point noncontributory. PHYSICAL EXAMINATION: VITAL SIGNS: Respiratory rate 17, 98.2 degrees, 118/77, 99 heart rate. HEENT: Unremarkable. LUNGS: Clear to auscultation. CARDIAC: Regular rate and rhythm without murmur or gallop. ABDOMEN: Soft, tenderness in right lower quadrant with guarding. Positive Rovsing sign in the left lower quadrant. EXTREMITIES: Unremarkable. ASSESSMENT AND PLAN: Crohn's disease with exacerbation. PLAN: Intravenous antibiotics, steroid prep. A repeat CAT scan tomorrow with IV and p.o. contrast. We will consult Gastroenterology. We will provide high dose steroids under the direction of Dr. Champ jasso, who is covering for Dr. Jansen. We will provide analgesics.
[2017-06-28] MEDS: Piperacillin/Tazobactam 3.375 GM in Sodium Chloride 0.9% 100 ML IVPB SCH ×3 (01:53→12:42)
[2017-06-28 04:59] LABS: #Lymphocytes 0.7 thou/uL (1.20-3.40); #Monocytes 0.1 thou/uL (0.11-0.59); #Neutrophils 9.7 thou/uL (1.40-6.50); %Basophils 0.4 % (0.0-1.0); %Eosinophils 0.1 % (0.0-10.0); %Lymphocytes 6.8 % (28.0-48.0); %Monocytes 0.7 % (0.0-4.0); Hematocrit 40.9 % (42.0-52.0); Red Blood Cell (RBC) Count 5.26 mill/uL (4.00-5.20); White Blood Cell (WBC) Count 10.6 thou/uL (4.8-10.8)
[2017-06-28] MEDS: Acetaminophen 1,000 MG in Premix Bag 1 BAG IVPB SCH ×2 (05:56→12:03)
[2017-06-28] MEDS: D5 1/2 NS w/20 mEq KCL 1,000 ML IV SCH ×2 (07:52→12:13)
[2017-06-28] MEDS ORDERED: diphenhydrAMINE 50 MG CAP PO SCH (08:00)
--- NOTE | 2017-06-28 09:49 | CT ---
CT ABDOMEN AND PELVIS WITH IV CONTRAST: DATE: 06/28/17. HISTORY: Right lower quadrant abdominal pain in a patient with a history of Crohn's disease. COMPARISON: 05/21/17 and a study on 04/16/17. FINDINGS: There is thickening involving the distal ileum as well as what appears to be the terminal ileum. Adj acent to the distal ileum, is an ill-defined collection of gas as well as a minimal area of increased density also interspersed within the areas of gas, and the gas densities extend to the anterolateral wall of the abdomen as well as to the skin surface. This is in site of a previous drainage catheter and phlegmon. There is no significant fluid collection seen in this region. The lung bases, liver, spleen, pancreas, bilateral adrenal glands, kidneys, abdominal aorta, and urin simone bladder demonstrate a normal CT appearance. There is a tiny amount of free fluid seen in the pelvis. IMPRESSION: 1. Thickening of loops of the distal ileum with a greater degree of thickening involving the most di stal ileum and terminal ileum likely related to patient's history of Crohn's disease. 2. In region of previous drainage catheter and phlegmon, there are several small gas densities, some of which also appear to contain slight increased density which may be related to contrast. The gas does extend to the abdominal wall and to the level of the skin surface at this location. The area of phlegmon with multiple gas densities measures approximately 2.1 cm in maximum dimensions. Findings may be related to developing fistula communication between the small bowel and skin surface. No flui d collection is seen. 3. The above findings were discussed with Dr. Levi on 06/28/17 at 0924 hours. CODE CR POS: CARI
[2017-06-28 11:56] VITALS: BP 124/75; TEMP 98
--- NOTE | 2017-06-28 15:05 | PRG ---
DATE OF SERVICE: 06/28/2017 SUBJECTIVE: Lane Shepard feels better today after less than 24 hours IV antibiotics and relative bow el rest. He is on high dose Solu-Medrol and Zosyn. Use prep overnight for his iodine allergy to hav e a CAT scan with p.o. and IV contrast this morning. The CAT scan has been obtained and reveals extr aluminal punctate air densities outside the ileocecal area. There was a phlegmon there. There is no drainable fluid. Patient has a palpable nodule in his right lower quadrant that has been present si nce his percutaneous drainage. There is some question of extravasating contrast in the area, but thi s is minimal. OBJECTIVE: LUNGS: Clear to auscultation. CARDIAC: Regular rate and rhythm without murmur or gallop. ABDOMEN: Soft, tenderness in the left lower quadrant markedly improved, almost resolved, tenderness in the right lower quadrant, improved relative to yesterday. VITAL SIGNS: 97.9 degrees, 65, respiratory rate 18, 106/63. The patient is asking what he can eat. ASSESSMENT AND PLAN: Crohn disease with complications. He has extraluminal gas and fluid, questiona ble contrast, however, he feels better. Continue high dose steroids, antibiotics, full liquid diet. Await Gastroenterology opinion. Operative intervention at this time would require laparotomy and pr obably ileocecectomy. We will continue medical treatment for now.
--- NOTE | 2017-06-28 21:23 | CON ---
DATE OF CONSULTATION: 06/28/2017 GI INPATIENT CONSULTATION NOTE REQUESTING PHYSICIAN: Abel Levi M.D. REASON FOR CONSULTATION: Crohn's disease. HISTORY OF PRESENT ILLNESS: Lane Shepard is a very pleasant 21-year-old man, a sophomore at [employer], who was diagnosed with Crohn's disease back in 03/2017 when he presented with an intraabdominal abscess. He is followed by my partner, Dr. Jansen as well as Dr. Rojas from a surgical perspective, he has been started on Remicade. His last CT scan prior to this admission was on 05/21/2017 and demonstrat ed inflammatory stranding in an area of resolved fluid collection, but there was no further abscess. The patient has been on a steroid taper over the past month, also taking Flagyl 500 mg t.i.d. under the direction of Dr. Jansen. He presented to the hospital yesterday and was admitted with worsening abdominal pain. There has been some nausea, but no vomiting. Stools have been watery and loose, but no bleeding. The abdominal pain really comes and goes. He was found to have leukocytosis upon admi ssion with WBC 21. He was started on IV Zosyn and we also started him on IV Solu-Medrol. Overnight, he has been doing really well. He is not really having any abdominal pain now, just a little bit of continued tenderness to the right lower quadrant. He has remained stable, tolerating his diet. He had a CT of the abdomen earlier today and this demonstrates significant thickening in the distal and terminal ileum and in the region of the previous drainage catheter, there are few small gas density i n an area measuring 2.1 cm. This is felt to possibly be relating to developing fistula communication between the small bowel and the subcutaneous tissue, but there is no fluid collection seen. The pat ient is feeling really well this morning and is wondering about hospital discharge. Dr. Jansen' impr ession has been to the patient will certainly require a small bowel surgery, but timing has been an i ssue. The patient would like to be able to wait till the end of the school semester to undergo surge ry if possible. REVIEW OF SYSTEMS: Full review of systems including constitutional, head, eyes, ears, nose, throat, GI, , cardiovascular, respiratory, musculoskeletal, and neurologic systems is negative except as no chantel in the HPI. PAST MEDICAL HISTORY: Crohn's disease on 03/23/2017 diagnosis, percutaneous drainage of intra-abdomi nal abscess. SOCIAL HISTORY: No smoking or alcohol use. FAMILY HISTORY: Noncontributory. ALLERGIES: No known drug allergies. OUTPATIENT MEDICATIONS: Prednisone taper currently at 10 mg per day, Flagyl 500 mg t.i.d. INPATIENT MEDICATIONS: Solu-Medrol 40 mg IV q.6 hours and IV Zosyn. PHYSICAL EXAMINATION: VITAL SIGNS: Temperature 97.5, pulse 65, blood pressure 106/63, 98% oxygen saturation on room air. GENERAL: A 21-year-old man appearing well, sitting up in bed in no distress. SKIN: No jaundice, no rashes were palpable. EYES: No scleral icterus. Extraocular movements intact. ENT: Mucous membranes moist, no oral lesions. LYMPH: No submandibular or supraclavicular lymphadenopathy. THYROID: Nontender to palpation. HEART: Regular rate and rhythm. LUNGS: Clear to auscultation bilaterally. ABDOMEN: Soft and nontender to palpation throughout. The overlying skin appears normal. There is s ome tenderness to the right lower quadrant and a bit of subcutaneous nodularity in the right lower qu adrant as well. No guarding or rebound tenderness. EXTREMITIES: No peripheral edema. VESSELS: Radial pulses 2+ bilaterally. NEUROLOGICAL: Cranial nerves II-XII intact bilaterally. No focal deficits. LABORATORY DATA: WBC down to 10.6, hemoglobin 12.4, platelets 252, BUN 14, creatinine 0.94. Total b ilirubin 0.9, alkaline phosphatase 69, AST 19, ALT 13, albumin 4.3, lipase 8. IMAGING STUDIES: CT of the abdomen and pelvis as detailed in the HPI. ASSESSMENT AND PLAN: 1. Crohn's ileitis, severe. 2. Right lower quadrant pain, improved. 3. History of right lower quadrant intraabdominal abscess, status post percutaneous drainage. I had a long discussion with the patient as well as Dr. Levi regarding his presentation and current CT f indings. The patient is certainly going to need surgery for this, but based on the CT appearance and his clinical status, this is not particularly urgent. The current plan had been to wait until the of the and I think that is still potentially doable. We will discharge the patient home back on 40 mg daily of prednisone and add ciprofloxacin to the Flagyl as well. He will continue thes e, and we will continue with Remicade with next dose schedule next week. He will follow up closely w ith Dr. Jansen and Dr. Rojas. Thank you for the consultation. Please call with questions or concerns.
== END 2017-06-28 14:54 | disposition home or self-care (01) | DRG 386 ==
LOC: ERS 16:16 → SJJU 18:56
PROVIDERS: ADMIT Specialist; ATTEND Specialist
DX: K50.014 Crohn's disease of small intestine with abscess (principal)
CPT/HCPCS: 36415; 74177; 80053; 81003; 81015; 83690; 85025; 96365; 96375; J0131; J1650; J1885; J2270; J2543; J2920; J7050

== ENCOUNTER 2017-07-14 09:32 | Outpatient (CLI) | payer BC ==
[2017-07-14 10:58] LABS: Hemoglobin A1c 5.4 % (4.0-6.0)
[2017-07-14 11:13] LABS: Anion Gap 12 mmol/L (10-20); BUN (Urea Nitrogen) 15 mg/dL (8.4-21.0); Calc. Creatinine Clearance 0 mL/min (70-130); Calcium 9.1 mg/dL (7.8-10.44); Carbon Dioxide 29 mmol/L (22-29); Chloride 106 mmol/L (98-107); Estimated GFR-MDRD Greater than 90
[2017-07-14 16:46] LABS: Hematocrit 39.8 % (42.0-52.0); Mean Platelet Volume 9.1 fL (7.4-10.4); Red Blood Cell (RBC) Count 5.07 mill/uL (4.00-5.20); White Blood Cell (WBC) Count 10.7 thou/uL (4.8-10.8)
[2017-07-14 17:04] LABS: Anisocytosis SLIGHT = 6-15 cells (100X) (0-5/hpf); Hypochromia SLIGHT = 6-15 cells (100X) (0-5/hpf); Neutrophil 38 % (31-61); Reactive Lymphocytes 5 % (0-10)
== END 2017-07-14 09:33 | disposition home or self-care (01) ==
LOC: LABBT 09:32
PROVIDERS: ATTEND Surgery
DX: Z01.812 Encounter for preprocedural laboratory examination (principal); K50.90 Crohn's disease, unspecified, without complications
CPT/HCPCS: 80048; 83036; 85025

== ENCOUNTER 2017-07-14 13:00 | Inpatient (IN) | payer BC ==
[2017-07-17] MEDS ORDERED: cefOXitin Sodium 2 GM, Syringe 1 ML in Sterile Water 10 ML SLOW IVP SCH (12:00)
[2017-07-17] MEDS ORDERED: Fentanyl 100 MCG/2 ML VIAL ONE ×2 (13:09→17:57)
[2017-07-17] MEDS ORDERED: Midazolam HCl 2 mg/2 ml Vial ONE ×2 (13:09→13:19)
[2017-07-17] MEDS ORDERED: Dexamethasone 4 mg/ml Vial ONE (13:09)
[2017-07-17] MEDS ORDERED: Indocyanine Green 25 MG/10 ML VIAL ONE (13:13)
[2017-07-17] MEDS ORDERED: Fentanyl 250 MCG/5 ML VIAL ONE (13:19)
[2017-07-17] MEDS ORDERED: Bupivacaine HCl 0.5%/Epinephrine 1:200,000/PF 30 ml Vial ONE (13:49)
[2017-07-17] MEDS ORDERED: Dexamethasone 20 MG/5 ML VIAL ONE (15:52)
[2017-07-17] MEDS ORDERED: Vecuronium 10 MG VIAL ONE (15:52)
[2017-07-17] MEDS ORDERED: Hydrocortisone Sod Succ/PF 100 mg/2 ml Vial ONE (15:52)
[2017-07-17] MEDS ORDERED: Glycopyrrolate 0.2 MG/ML 5 ML SYRINGE ONE (15:52)
[2017-07-17] MEDS ORDERED: Lidocaine 1% PF 5 ML VIAL ONE (15:52)
[2017-07-17] MEDS ORDERED: Ondansetron HCl/PF 4 MG/2 ML Vial ONE (15:52)
[2017-07-17] MEDS ORDERED: Propofol 200 MG/20 ML VIAL ONE (15:52)
[2017-07-17] MEDS ORDERED: Ketorolac Tromethamine 30 MG/ML VIAL ONE (15:52)
[2017-07-17] MEDS ORDERED: Promethazine HCl 25 MG/ML VIAL IM PRN ×2 (16:56→18:55)
[2017-07-17] MEDS ORDERED: Ondansetron HCl/PF 4 MG/2 ML Vial IVP PRN ×2 (16:56→18:55)
[2017-07-17] MEDS ORDERED: Promethazine HCl 25 MG/ML VIAL SLOW IVP PRN (16:56)
[2017-07-17] MEDS ORDERED: HYDROmorphone 2 MG/ML VIAL SLOW IVP PRN (16:56)
[2017-07-17] MEDS ORDERED: Meperidine HCl/PF 25 MG/ML VIAL SLOW IVP PRN (16:56)
[2017-07-17] MEDS ORDERED: D5 1/2 NS w/20 mEq KCL 1,000 ML ONE (17:20)
[2017-07-17] MEDS ORDERED: hydrALAZINE 20 MG/ML VIAL SLOW IVP PRN (18:55)
[2017-07-17] MEDS ORDERED: Fentanyl 100 MCG/2 ML VIAL SLOW IVP PRN (18:55)
[2017-07-17] MEDS: Famotidine/PF 20 mg/2ml Vial SLOW IVP SCH (21:18)
[2017-07-17] MEDS: D5 1/2 NS w/20 mEq KCL 1,000 ML IV SCH (21:18)
[2017-07-17] MEDS: Hydrocortisone Sod Succ/PF 100 mg/2 ml Vial IVP SCH (21:19)
[2017-07-17] MEDS: Fentanyl 100 MCG/2 ML VIAL SLOW IVP PRN (21:19)
[2017-07-17] MEDS: Famotidine 20 MG TAB PO SCH (21:20)
[2017-07-17] MEDS: Acetaminophen 1,000 MG in Premix Bag 1 BAG IVPB SCH (23:06)
[2017-07-17] MEDS: cefOXitin Sodium 2 GM, Syringe 1 ML in Sterile Water 10 ML IVPB SCH (23:07)
[2017-07-18] MEDS: Hydrocortisone Sod Succ/PF 100 mg/2 ml Vial IVP SCH ×3 (03:47→20:18)
[2017-07-18] MEDS: Fentanyl 100 MCG/2 ML VIAL SLOW IVP PRN ×2 (03:48→07:41)
[2017-07-18] MEDS: D5 1/2 NS w/20 mEq KCL 1,000 ML IV SCH ×2 (04:01→12:30)
[2017-07-18 04:50] VITALS: BMI 21.6
[2017-07-18 05:31] LABS: Anion Gap 9 mmol/L (10-20); BUN (Urea Nitrogen) 13 mg/dL (8.4-21.0); Calc. Creatinine Clearance 117 mL/min (70-130); Carbon Dioxide 27 mmol/L (22-29); Chloride 104 mmol/L (98-107); Estimated GFR-MDRD Greater than 90
[2017-07-18 05:32] LABS: #Basophils 0.2 thou/uL (0.0-0.2); #Lymphocytes 0.6 thou/uL (1.20-3.40); #Monocytes 0.9 thou/uL (0.11-0.59); %Lymphocytes 3.6 % (28.0-48.0); %Monocytes 5.1 % (0.0-4.0); Hematocrit 34.8 % (42.0-52.0); Mean Platelet Volume 8.7 fL (7.4-10.4); Red Blood Cell (RBC) Count 4.53 mill/uL (4.00-5.20); White Blood Cell (WBC) Count 16.7 thou/uL (4.8-10.8)
[2017-07-18] MEDS: Acetaminophen 1,000 MG in Premix Bag 1 BAG IVPB SCH ×3 (06:22→18:48)
[2017-07-18] MEDS: cefOXitin Sodium 2 GM, Syringe 1 ML in Sterile Water 10 ML IVPB SCH (06:23)
--- NOTE | 2017-07-18 07:33 | OP ---
DATE OF PROCEDURE: 07/17/2017 PREOPERATIVE DIAGNOSES: 1. Crohn's disease, chronic intractable to Biologic requiring chronic low dose steroids with frequen t flareups 2. 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 POSTOPERATIVE DIAGNOSES: 1. Crohn's disease, chronic intractable to Biologic requiring chronic low dose steroids with frequen t flareups 2. 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 PROCEDURE: 1. Laparoscopic da Roro assisted ileocecectomy diverted with loop ileostomy. 2. Small bowel resection and anastomosis. SURGEON: Eliezer Rojas M.D. ANESTHESIA: General. ESTIMATED BLOOD LOSS: Minimal. COMPLICATIONS: None. FINDINGS: There is phlegmonous change in the right lower quadrant involving not only the terminal il eum, but a loop of the mid small bowel as well. Because he is on chronic higher dose steroids and he has some component of active Crohn's, the decision was made to divert the anastomosis. SPECIMEN: Ileocecectomy and small bowel. INDICATION: The patient is a 21-year-old college student with a history of Crohn's diagnosed several months ago when he had a right lower quadrant contained perforation, perk drainage was performed whi ch developed into an enterocutaneous fistula. This resolved on outpatient Biologic, he was diagnosed with Crohn's disease by Dr. Jansen. He had a colonoscopy revealing no obvious disease of his colon, but a terminal ileum stricture. He has had multiple hospitalizations for this and required broad sp ectrum antibiotics and multiple courses of steroids. Most recently he was readmitted and had an air fluid collection in his right lower quadrant. Risks and benefits of resection were discussed. He un derstands risks of bleeding, infection, scarring, anastomotic leak, enterocutaneous fistula, need for multiple operations, need for ostomy. TECHNIQUE: The patient underwent mechanical and antibiotic bowel prep. His abdomen was shaved in pr eop holding and he had tap blocks in preop holding as well. He was taken to the operating room and l aid supine on the operating room supine on the table. After general anesthetic was obtained, a Busch was placed. The abdomen was prepped and draped in a sterile fashion. Left subcostal 5-mm Optiview trocar was placed in the usual fashion without injury. High-flow pneumoperitoneum was obtained. A 5 mm robot camera port was placed to the left of the umbilicus. Robot assist port was placed in the l eft lower quadrant. The left subcostal port was switched out to the 15 mm robot stapler port and a c yst 11 port was placed in the left lateral upper abdomen. The patient was placed in Trendelenburg po sition and all ports were docked to the robot. The surgeon goes to the console. The peritoneum was taken down on the lateral attachments to the colon and small bowel. Omentum was tightly adhesed to t his where the previous enterocutaneous was. This was all taken down fairly easily. There was an are a of the mid small bowel that was also stuck to this area. This was meticulously dissected off. The peritoneum on the medial aspect of the cecal mesentery was incised. A window was made laterally. Th e left and the right ureter was found and excluded from the rest of the dissection. The robot vessel s sear was used to take the ileocolic vessels. The mesentery was then taken up using a vessel sealer . Duodenum was found and excluded from the dissection. Dissection was performed right to the level of the proximal transverse colon, robot stapler was fired across the proximal transverse colon. A r eload was fired across the terminal ileum, fired across the ileum proximal to the area of grossly act marie Crohn's, approximately 4 inches of the ileum was thus removed where it was attached to the colon. The specimen was placed in the left lower quadrant. The small bowel was able to be brought up agai nst the proximal transverse colon in isoperistaltic fashion under no tension. Holding stitch of Vicr yl was placed at the top and bottom. Enterotomy was made on each and the robot stapler was used to f orm a hjef-ow-nugd anastomosis. The common enterotomy was sewn via the robot using a 2-0 Vicryl sutu re in 2 layers. The anastomosis looked intact. The small bowel proximally did have some evidence of mild Crohn's with chronic inflammatory change. Decision was made to divert with loop ileostomy. Ab out 8 inches proximal to the anastomosis a silk suture was placed on the intestine to richa it for fut ure ileostomy. All ports are undocked from the robot. The surgeon scrubs back into the bedside. A 3-cm incision was made in the right lower quadrant and a muscle splitting incision made into the abdo lizzy cavity, Bharath wound retractor was placed. The small bowel was brought up through this incisio n. There appeared to be significant damage to the lateral wall of the small bowel in this area secon vandana to this phlegmonous process, unsure if there was any mucosal abnormalities. The decision was candace judd to resect this small area, GREG-75 stapler was fired across the small bowel proximal and distal it, the mesentery was taken using Dot clamp and silk ties. A dmry-kw-cxnn anastomosis was performed u sing GREG-75 stapler. The common enterotomy closed using TA 60 stapler. The corners and the crotch w ere oversewn using silk pop offs. This was placed back into the abdominal cavity. The silk area dariela t was marked previously was then brought up through this incision and held in place using a red rubbe r catheter. PDS was used to close the fascial defect left subcostal. All incisions were closed usin g 4-0 Monocryl and Dermabond. Loop ileostomy was then matured in the typical fashion using Vicryl nance ture and ostomy devices placed. The patient was en route to recovery in stable condition. All instr ument counts, needle counts, and lap counts were correct.
[2017-07-18] MEDS: Famotidine/PF 20 mg/2ml Vial SLOW IVP SCH ×2 (09:09→20:29)
[2017-07-18] MEDS: Famotidine 20 MG TAB PO SCH ×2 (09:10→20:20)
[2017-07-18] MEDS ORDERED: HYDROcodone/Acetaminophen 10/325 mg Tablet PO PRN (12:08)
[2017-07-18] MEDS ORDERED: Diazepam 5 MG TAB PO PRN (12:09)
--- NOTE | 2017-07-18 12:31 | PRG ---
DATE OF SERVICE: 07/18/2017 SUBJECTIVE: Postop day #1, ileocecectomy for Crohn's. Mr. Shepard is doing okay. He is complaining o f upper abdominal muscle spasm, no nausea. He has been ambulating. His Busch came out this morning and he has urinated without difficulty. PHYSICAL EXAMINATION: VITAL SIGNS: He is afebrile and his vital signs are stable. ABDOMEN: Soft and appropriately tender, creatinine 0.85, hemoglobin 11. ASSESSMENT: Postop #1, ileocecectomy laparoscopic diverting loop ileostomy. PLAN: We will add Valium p.o. for muscle spasm, added [place] for pain, Hep-Lock to his fluids, will a dvance to full liquids this afternoon, already written for ostomy teaching, likely home over the week end. I have already sent his prescriptions to [facility] [address].
[2017-07-18] MEDS: HYDROcodone/Acetaminophen 10/325 mg Tablet PO PRN ×2 (15:00→20:19)
[2017-07-19] MEDS: HYDROcodone/Acetaminophen 10/325 mg Tablet PO PRN ×2 (04:41→11:42)
[2017-07-19] MEDS: Hydrocortisone Sod Succ/PF 100 mg/2 ml Vial IVP SCH ×2 (04:42→11:41)
[2017-07-19] MEDS: Famotidine 20 MG TAB PO SCH (08:43)
[2017-07-19] MEDS: Famotidine/PF 20 mg/2ml Vial SLOW IVP SCH (10:17)
--- NOTE | 2017-07-19 15:00 | PRG ---
DATE OF SERVICE: 07/19/2017 SUBJECTIVE: Mr. Shepard is postop day #2 from da Roro laparoscopic small bowel resection of strictured fistulized area of Crohn disease. He is doing well with good ostomy output. He is tolerating liqui ds. Ostomy output is starting to solidify a little bit. He has had no fever, chills, or pain. He i s voiding. He started ambulating. OBJECTIVE: VITAL SIGNS: Temperature is 98, pulse 73, blood pressure 134/75, respirations 18. The patient's lex ghter is at bedside. GENERAL: He is resting comfortably. LUNGS: Clear. ABDOMEN: Nontender. Ostomy site looks good, pink mucosa with greenish output. EXTREMITIES: Reveal no edema. LABORATORY STUDIES: Yesterday, white count 16, hemoglobin 11, MCV was 76, platelet count was 248. C hemistries, yesterday electrolytes were all normal. Glucose is 153. ASSESSMENT: Postop day #2 from laparoscopic ileal resection with ileocolonic anastomosis and diverti ng loop ileostomy. The patient is doing well and understands ostomy function and feels comfortable c hanging it. We discussed diet little bit. He had Remicade last month and will be due again in early September; he is doing it every 8 weeks now. Ideally, I would like to repeat endoscopy and evaluate bowel probably before his ostomy takedown, but if not, then definitely within a few months of that to make sure we have a remission between the surgery and the Remicade; if not, one option would be to i ncrease Remicade to 10 mg/kg. We will plan to see the patient back in the office after the holidays as he is going back to his hometown in [facility], although he has my phone number and if he has a ny problems or complications, I would be more than happy to see him before.
[2017-07-19 16:56] VITALS: BP 126/86; TEMP 98.3
--- NOTE | 2017-07-19 17:36 | PRG ---
DATE OF SERVICE: 07/19/2017 SUBJECTIVE: Lane Shepard is doing well today. He is tolerating his diet. PHYSICAL EXAMINATION: VITAL SIGNS: Stable. He is afebrile. LUNGS: Clear to auscultation. ABDOMEN: Soft and nontender. Ileostomy good functioning. He is tolerating a regular diet. Patient is discharged home to wean his steroids. He will follow up with Dr. Rojas in the next few weeks. He is on a regular diet. He has analgesics prescribed by Dr. Rojas.
== END 2017-07-19 18:27 | disposition home or self-care (01) | DRG 330 ==
LOC: SURG A 07-17 10:49
PROVIDERS: ADMIT Surgery; ATTEND Surgery
PROC: 0DTH0ZZ Resection of Cecum, Open Approach (ICD-10-PCS; principal; 2017-07-17)
PROC: 0D1B0Z4 Bypass Ileum to Cutaneous, Open Approach (ICD-10-PCS; 2017-07-17)
PROC: 0DB80ZZ Excision of Small Intestine, Open Approach (ICD-10-PCS; 2017-07-17)
PROC: 0DTK0ZZ Resection of Ascending Colon, Open Approach (ICD-10-PCS; 2017-07-17)
PROC: 8E0W4CZ Robotic Assisted Procedure of Trunk Region, Percutaneous Endoscopic Approach (ICD-10-PCS; 2017-07-17)
PROC: 3E0T3BZ Introduction of Anesthetic Agent into Peripheral Nerves and Plexi, Percutaneous Approach (ICD-10-PCS; 2017-07-17)
PROC: 3E0T3BZ Introduction of Anesthetic Agent into Peripheral Nerves and Plexi, Percutaneous Approach (ICD-10-PCS; 2017-07-17)
DX: K50.012 Crohn's disease of small intestine with intestinal obstruction (principal); Z79.52 Long term (current) use of systemic steroids; K50.014 Crohn's disease of small intestine with abscess; K50.013 Crohn's disease of small intestine with fistula
CPT/HCPCS: 36415; 36416; 80048; 85025; 88307; A4216; J0131; J0670; J0694; J1100; J1720; J1885; J2001; J2250; J2405; J2704; J3010; S0028

== ENCOUNTER 2017-08-11 17:37 | Emergency (ER) | payer BC | END 2017-08-11 17:44 | disposition left against medical advice (07) | LOC: ERS 17:37 | DX: Z53.21 Procedure and treatment not carried out due to patient leaving prior to being seen by health care provider (principal) ==

== ENCOUNTER 2017-08-29 14:43 | Outpatient (CLI) | payer BC | END 2017-08-29 14:44 | disposition home or self-care (01) | LOC: WCC 14:43 | PROVIDERS: ATTEND Family Medicine | DX: K94.10 Enterostomy complication, unspecified (principal) | CPT/HCPCS: 99211; G0463 ==